=== PATIENT | female | born 1960 ===

== ENCOUNTER 2017-08-29 12:35 | Emergency (ER) | payer OTHER ==
[2017-08-29 12:59] VITALS: BMI 28.3
[2017-08-29 13:03] VITALS: RESP 18
--- NOTE | 2017-08-29 14:55 | RAD ---
PROCEDURE: Radiographs of the Lumbar Spine. HISTORY: Low back pain COMPARISON: No prior. FINDINGS: BONES: Normal alignment. No listhesis. No fracture. DISC SPACES: Mild multilevel posterior disc space narrowing. Small marginal anterior osteophyte formation seen at several levels. Facet joints are hypertrophic L5-S1 through the L 2 L3 levels in decreasing order of severity. OTHER FINDINGS: None. IMPRESSION: No evidence acute displaced fracture nor dislocation. Minor degenerative spondylosis as above
[2017-08-29 15:09] VITALS: BP 132/62; PULSE 66; TEMP 98.8; O2SAT 100
--- NOTE | 2017-08-29 17:42 | C.PDOC ---
History Of Present Illness 57 year old female with a history of chronic back pain presents to the emergency department with complaints of lower back pain since yesterday. Patient states that she was cleaning her house and was on her hands and knees for an extended period of time. She denies bowel/bladder dysfunction, saddle anesthesia, dysuria, hematuria, and vaginal bleeding/discharge. Chief Complaint (Nursing): Back Pain History Per: Patient History/Exam Limitations: no limitations Onset/Duration Of Symptoms: Days (1) Current Symptoms Are (Timing): Still Present Quality Of Discomfort: "Pain" Associated Symptoms: denies: Incontinence, Other (bladder/bowel dysfunction, saddle anesthesia, dysuria, hematuria, vaginal bleeding/discharge.) Past Medical History Reviewed: Historical Data, Nursing Documentation, Vital Signs Vital Signs: Last Vital Signs Temp 98.8 F 08/29/17 15:08 Pulse 66 08/29/17 15:08 Resp 18 08/29/17 15:08 BP 132/62 08/29/17 15:08 Pulse Ox 100 08/29/17 17:44 - Medical History PMH: No Chronic Diseases Surgical History: No Surg Hx Family History: States: No Known Family Hx - Social History Hx Alcohol Use: No Hx Substance Use: No - Immunization History Hx Tetanus Toxoid Vaccination: No Hx Influenza Vaccination: Yes Hx Pneumococcal Vaccination: No Review Of Systems Except As Marked, All Systems Reviewed And Found Negative. Genitourinary: Negative for: Dysuria, Hematuria, Vaginal Discharge, Vaginal Bleeding Musculoskeletal: Positive for: Back Pain Neurological: Negative for: Weakness, Numbness Physical Exam - Physical Exam Appears: Non-toxic, In Acute Distress (mild) Skin: Warm, Dry Head: Atraumatic, Normacephalic Eye(s): bilateral: Normal Inspection Nose: Normal Neck: Normal, Supple Chest: Symmetrical Cardiovascular: Rhythm Regular Respiratory: Normal Breath Sounds, No Rales, No Rhonchi, No Wheezing Gastrointestinal/Abdominal: Normal Exam, Soft, No Tenderness Back: Normal Inspection, Other (diffuse lower back tenderness) Extremity: Normal ROM Neurological/Psych: Oriented x3, Normal Speech, Normal Cognition ED Course And Treatment O2 Sat by Pulse Oximetry: 100 (RA) Pulse Ox Interpretation: Normal - Other Rad XR LS Spine X-Ray: Viewed By Me, Read By Radiologist Interpretation: IMPRESSION: No evidence acute displaced fracture nor dislocation. Minor degenerative spondylosis as above Progress Note: Plan: Flexeril 10mg PO. Toradol 60mg IM. XR LS Spine AP/LAT Disposition - Disposition Referrals: [facility] [Outside] [facility] [Outside] Disposition: HOME/ ROUTINE Disposition Time: 15:00 Condition: GOOD Additional Instructions: NIKKI RICHARDSON, thank you for letting us take care of you today. Your provider was Shane Montenegro DO and you were treated for LOWER BACK PAIN. The emergency medical care you received today was directed at your acute symptoms. If you were prescribed any medication, please fill it and take as directed. It may take several days for your symptoms to resolve. Return to the Emergency Department if your symptoms worsen, do not improve, or if you have any other problems. Please contact your doctor or call one of the physicians/clinics you have been referred to that are listed on the Patient Visit Information form that is included in your discharge packet. Bring any paperwork you were given at discharge with you along with any medications you are taking to your follow up visit. Our treatment cannot replace ongoing medical care by a primary care provider outside of the emergency department. Thank you for allowing the [facility] team to be part of your care today. Follow up in the clinic this week for re-evaluation and further management. NIKKI RICHARDSON, eleni por dejarnos atenderlo hoy. Wisdom proveedor fue Shane Montenegro DO y usted recibi tratamiento para el DOLOR DE ESPALDA INFERIOR. La atencin mdica de emergencia que recibi hoy estaba dirigida a viridiana sntomas agudos. Si le prescribieron algn medicamento, llnelo y tome seg n las indicaciones. Viridiana sntomas pueden tardar varios angela en resolverse. Regrese al Departamento de Emergencia si viridiana sntomas empeoran, no mejoran o si tiene algn otro problema. Comunquese con wisdom mdico o llame a marta de los mdicos / clnicas a los que sinha sido referido que figura en el formulario de Informacin de visita del paciente que se incluye en wisdom paquete de vinayak. Traiga todos los documentos que recibi al momento del vinayak junto con los medicamentos que est tomando en wisdom visita de seguimiento. Nuestro tratamiento no puede reemplazar la atencin mdica en curso por un proveedor de atencin primaria fuera del departamento de emergencia. Eleni por permitir que el equipo de [facility] [id number] sea parte de wisdom cuidado hoy. [place] un seguimiento en la clnica esta semana para oscar reevaluacin y administracin adicional. Prescriptions: Cyclobenzaprine [Cyclobenzaprine HCl] 10 mg PO Q8 PRN #20 tab PRN Reason: Muscle Spasm Ibuprofen [Motrin] 600 mg PO Q6 PRN #20 tab PRN Reason: Pain, Moderate (4-7) Instructions: Low Back Pain (DC) Forms: Gen Discharge Inst Guyanese, Gazelle (Guyanese) Print Language: GREENLANDIC - Clinical Impression Clinical Impression: Low back pain - Scribe Statement The provider has reviewed the documentation as recorded by the Scribe (Lenard Ochoavi) Provider Attestation: All medical record entries made by the Scribe were at my direction and personally dictated by me. I have reviewed the chart and agree that the record accurately reflects my personal performance of the history, physical exam, medical decision making, and the department course for this patient. I have also personally directed, reviewed, and agree with the discharge instructions and disposition.
== END 2017-08-29 15:09 | disposition home or self-care (01) ==
LOC: C.ER 12:35
DX: M54.5 Low back pain (principal)
CPT/HCPCS: 72100; 96372; 99283; J1885

== ENCOUNTER 2017-12-24 19:48 | Emergency (ER) | payer OTHER ==
[2017-12-24 19:48] VITALS: BMI 28.3
[2017-12-24 20:16] VITALS: RESP 18
--- NOTE | 2017-12-24 21:39 | C.PDOC ---
History Of Present Illness 57 y/o female with hx dm, on metformin, with recently diagnosed dermatomyositis s/p muscle biopsy in DR. pt now on prednisone, plaquenil and myco... . pt seen recently by pmd and has rheumatology appt set up. pt c/o facial swelling for more than a month. per pmd, this is due to her medications. Time Seen by Provider: 12/24/17 20:34 Chief Complaint (Nursing): Medical Clearance Past Medical History Vital Signs: Last Vital Signs Temp 98.5 F 12/24/17 20:06 Pulse 85 12/24/17 20:06 Resp 18 12/24/17 20:06 BP 119/75 12/24/17 20:06 Pulse Ox 98 12/24/17 20:06 - Medical History PMH: Hypercholesterolemia - Social History Hx Alcohol Use: No Hx Substance Use: No - Immunization History Hx Tetanus Toxoid Vaccination: No Hx Influenza Vaccination: No Hx Pneumococcal Vaccination: No ED Course And Treatment O2 Sat by Pulse Oximetry: 98 Disposition - Disposition Referrals: Tex Isabel DO [Doctor Osteopathy] - Juanjo Brewer [Staff Provider] - [facility] [Outside] Brendon Ardon MD [Staff Provider] - Disposition: HOME/ ROUTINE Disposition Time: 21:39 Condition: GOOD Additional Instructions: Seguimiento con oculista en 1-2 angela. [place] un seguimiento con el Dr. Shafer y con el Reumatlogo lo antes posible. Use gotas para los ojos segn las indicaciones. Follow up with eye doctor in 1-2 days. Follow up with Dr Shafer and with [employer] as soon as possible. Use eye drops as directed. Prescriptions: Polyethylene Glycol/Polyvinyl [Artificial Tears] 1 appl OU Q6 #1 bottle Instructions: Conjunctivitis (Noninfectious Pinkeye) (DC) Forms: komoot (Sudanese), Gen Discharge Inst Argentine, komoot (Argentine) Print Language: FAROESE - Clinical Impression Clinical Impression: Conjunctivitis, Medical assessment
[2017-12-24 21:56] VITALS: BP 122/67; PULSE 84; TEMP 98.3
[2017-12-25 05:48] VITALS: O2SAT 98
== END 2017-12-24 21:56 | disposition home or self-care (01) ==
LOC: C.ER 19:48
DX: H10.9 Unspecified conjunctivitis (principal); E11.9 Type 2 diabetes mellitus without complications; E78.00 Pure hypercholesterolemia, unspecified

== ENCOUNTER 2018-03-29 10:03 | Outpatient (CLI) | payer OTHER | END 2018-03-29 10:04 | disposition home or self-care (01) | LOC: C.DEXAIC 10:03 | DX: M85.80 Other specified disorders of bone density and structure, unspecified site (principal); E11.9 Type 2 diabetes mellitus without complications; E78.2 Mixed hyperlipidemia ==

== ENCOUNTER 2018-03-31 11:30 | Outpatient (CLI) | payer OTHER | END 2018-03-31 11:31 | disposition home or self-care (01) | LOC: C.LAB 11:30 | DX: E11.9 Type 2 diabetes mellitus without complications (principal); E78.2 Mixed hyperlipidemia; M85.00 Fibrous dysplasia (monostotic), unspecified site; Z12.11 Encounter for screening for malignant neoplasm of colon ==

== ENCOUNTER 2018-04-06 09:54 | Outpatient (CLI) | payer OTHER | END 2018-04-06 09:55 | disposition home or self-care (01) | LOC: C.LAB 09:54 ==

== ENCOUNTER 2018-05-25 09:28 | Outpatient (CLI) | payer OTHER | END 2018-05-25 09:29 | disposition home or self-care (01) | LOC: C.EKG 09:28 | DX: R07.9 Chest pain, unspecified (principal) ==

== ENCOUNTER 2018-05-27 08:27 | Outpatient (CLI) | payer OTHER | END 2018-05-27 08:28 | disposition home or self-care (01) | LOC: C.CARD 08:27 | DX: R07.9 Chest pain, unspecified (principal) ==

== ENCOUNTER 2018-07-07 08:34 | Outpatient (CLI) | payer OTHER | END 2018-07-07 08:35 | disposition home or self-care (01) | LOC: C.LAB 08:34 | DX: E11.8 Type 2 diabetes mellitus with unspecified complications (principal); R74.8 Abnormal levels of other serum enzymes; E78.00 Pure hypercholesterolemia, unspecified ==

== ENCOUNTER 2018-07-07 08:58 | Outpatient (CLI) | payer OTHER | END 2018-07-07 08:59 | disposition home or self-care (01) | LOC: C.LAB 08:58 | DX: E11.9 Type 2 diabetes mellitus without complications (principal); E78.2 Mixed hyperlipidemia; R74.8 Abnormal levels of other serum enzymes ==